=== PATIENT | male | born 1990 | race Caucasian/White ===

== ENCOUNTER 2018-08-18 09:35 | Observation (INO) | payer OTHER ==
[2018-08-18] MEDS ORDERED: SODIUM CHLORIDE 0.9% 1,000 ML IV STA (10:20)
[2018-08-18] MEDS ORDERED: ONDANSETRON 4 MG/2 ML VIAL IVP STA (10:20)
[2018-08-18] MEDS ORDERED: MORPHINE SULFATE 4 MG/ML SYRINGE IV STA (10:20)
[2018-08-18] MEDS ORDERED: SODIUM CHLORIDE 0.9% 500 ML 500 ML IV STA (10:20)
--- NOTE | 2018-08-18 10:21 | ED ---
Abdominal Pain HPI - General Chief Complaint: Abdominal Pain Stated Complaint: appendix Time Seen by Provider: 08/18/18 09:57 Source: patient, RN notes reviewed, old records reviewed Mode of arrival: ambulatory Limitations: no limitations - History of Present Illness Initial Comments: This is a 28-year-old male the ER for evaluation. Patient resents today for evaluation regarding abdominal pain, severe right lower quadrant abdominal pain. Mild nausea no vomiting. Patient's only medical history is underlying hypertension. Denies fever, denies constipation or diarrhea. MD Complaint: abdominal pain (Right lower quadrant) -: hour(s) Location: RLQ Radiation: none Migration to: RLQ Severity scale (1-10): 6 Quality: aching Consistency: constant Improves With: nothing Worsens With: nothing Associated Symptoms: nausea - Related Data Home Medications Medication Instructions Recorded Confirmed amLODIPine [Norvasc] 10 mg PO HS 08/18/18 08/18/18 Allergies Allergy/AdvReac Type Severity Reaction Status Date / Time No Known Allergies Allergy Verified 08/18/18 10:26 Review of Systems ROS Statement: Those systems with pertinent positive or pertinent negative responses have been documented in the HPI. ROS Other: All systems not noted in ROS Statement are negative. Past Medical History Past Medical History: Hypertension History of Any Multi-Drug Resistant Organisms: None Reported Past Surgical History: Tonsillectomy Past Psychological History: No Psychological Hx Reported Smoking Status: Never smoker Past Alcohol Use History: None Reported Past Drug Use History: None Reported General Exam Limitations: no limitations General appearance: alert, in no apparent distress Head exam: Present: atraumatic, normocephalic, normal inspection Eye exam: Present: normal appearance, PERRL, EOMI. Absent: scleral icterus, conjunctival injection, periorbital swelling ENT exam: Present: normal exam, mucous membranes moist Neck exam: Present: normal inspection. Absent: tenderness, meningismus, lymphadenopathy Respiratory exam: Present: normal lung sounds bilaterally. Absent: respiratory distress, wheezes, rales, rhonchi, stridor Cardiovascular Exam: Present: regular rate, normal rhythm, normal heart sounds. Absent: systolic murmur, diastolic murmur, rubs, gallop, clicks GI/Abdominal exam: Present: soft, normal bowel sounds, other (Right lower quadrant abdominal tenderness, positive McBurney's). Absent: distended, tenderness, guarding, rebound, rigid Extremities exam: Present: normal inspection, full ROM, normal capillary refill. Absent: tenderness, pedal edema, joint swelling, calf tenderness Back exam: Present: normal inspection Neurological exam: Present: alert, oriented X3, CN II-XII intact Psychiatric exam: Present: normal affect, normal mood Skin exam: Present: warm, dry, intact, normal color. Absent: rash Course Vital Signs 08/18/18 08/18/18 08/18/18 09:52 11:26 11:44 Temperature 98.2 F 97.9 F Pulse Rate 77 75 Respiratory 16 16 Rate Blood Pressure 163/99 170/126 O2 Sat by Pulse 98 98 Oximetry - Reevaluation(s) Reevaluation #1: 08/18/18 12:03 Patient's pain is controlled Medical Decision Making - Medical Decision Making 28 male the ER for evaluation patient presents today for evaluation regarding abdominal pain positive acute appendicitis, will admit for surgical evaluation - Lab Data Result diagrams: 08/18/18 10:18 08/18/18 10:18 Lab Results 08/18/18 08/18/18 Range/Units 10:18 10:18 WBC 12.7 H (3.8-10.6) k/uL RBC 5.99 H (4.30-5.90) m/uL Hgb 17.5 (13.0-17.5) gm/dL Hct 48.7 (39.0-53.0) % MCV 81.4 (80.0-100.0) fL MCH 29.3 (25.0-35.0) pg MCHC 36.0 (31.0-37.0) g/dL RDW 13.2 (11.5-15.5) % Plt Count 216 (150-450) k/uL Neutrophils % 79 % Lymphocytes % 12 % Monocytes % 6 % Eosinophils % 3 % Basophils % 0 % Neutrophils # 10.0 H (1.3-7.7) k/uL Lymphocytes # 1.5 (1.0-4.8) k/uL Monocytes # 0.7 (0-1.0) k/uL Eosinophils # 0.4 (0-0.7) k/uL Basophils # 0.0 (0-0.2) k/uL Hyperchromasia Slight Sodium 142 (137-145) mmol/L Potassium 3.6 (3.5-5.1) mmol/L Chloride 102 (98-107) mmol/L Carbon Dioxide 29 (22-30) mmol/L Anion Gap 11 mmol/L BUN 10 (9-20) mg/dL Creatinine 0.94 (0.66-1.25) mg/dL Est GFR (CKD-EPI)AfAm >90 (>60 ml/min/1.73 sqM) Est GFR (CKD-EPI)NonAf >90 (>60 ml/min/1.73 sqM) Glucose 96 (74-99) mg/dL Calcium 10.1 (8.4-10.2) mg/dL Total Bilirubin 1.0 (0.2-1.3) mg/dL AST 34 (17-59) U/L ALT 66 (21-72) U/L Alkaline Phosphatase 83 (38-126) U/L Total Protein 8.4 H (6.3-8.2) g/dL Albumin 5.1 H (3.5-5.0) g/dL Amylase 48 (30-110) U/L Lipase 90 (23-300) U/L - Radiology Data Radiology results: report reviewed (CT abdomen pelvis positive for appendicitis) , image reviewed Disposition Clinical Impression: Abdominal pain, Acute appendicitis Disposition: ADMITTED IP TO THIS [facility] Condition: Good Is patient prescribed a controlled substance at d/c from ED?: No Referrals: Vilma Beltre MD [Primary Care Provider] - 1-2 days
[2018-08-18 10:47] LABS: Basophils % (A) 0 %; Eosinophils # (A) 0.4 k/uL (0-0.7); Eosinophils % (A) 3 %; HCT 48.7 % (39.0-53.0); HGB 17.5 gm/dL (13.0-17.5); Hyperchromasia Slight; Lymphocytes # (A) 1.5 k/uL (1.0-4.8); Lymphocytes % (A) 12 %; MCH 29.3 pg (25.0-35.0); MCV 81.4 fL (80.0-100.0); Mean Platelet Volume 6.8; Monocytes # (A) 0.7 k/uL (0-1.0); Monocytes % (A) 6 %; Neutrophils % (A) 79 %; Platelet Count 216 k/uL (150-450); RBC 5.99 m/uL (4.30-5.90); RDW 13.2 % (11.5-15.5); WBC 12.7 k/uL (3.8-10.6)
[2018-08-18 10:59] LABS: ALT 66 U/L (21-72); AST 34 U/L (17-59); Albumin 5.1 g/dL (3.5-5.0); Alkaline Phosphatase 83 U/L (38-126); Amylase 48 U/L (30-110); Anion Gap 11 mmol/L; Blood Urea Nitrogen 10 mg/dL (9-20); Calcium 10.1 mg/dL (8.4-10.2); Carbon Dioxide 29 mmol/L (22-30); Chloride 102 mmol/L (98-107); Glucose 96 mg/dL (74-99); Lipase 90 U/L (23-300); Potassium 3.6 mmol/L (3.5-5.1); Sodium 142 mmol/L (137-145); Total Protein 8.4 g/dL (6.3-8.2)
--- NOTE | 2018-08-18 11:05 | CT ---
EXAMINATION TYPE: CT abdomen pelvis w con DATE OF EXAM: 08/18/2018 COMPARISON: None HISTORY: RLQ pain, nausea, diarrhea CT DLP: 747.3 mGycm Automated exposure control for dose reduction was used. TECHNIQUE: Helical acquisition of images was performed from the lung bases through the pelvis. CONTRAST: Performed without Oral Contrast and with IV Contrast, patient injected with 100 mL of Isovue 300. FINDINGS: LUNG BASES: No significant abnormality is appreciated. LIVER/GB: Unremarkable morphology and enhancement other than a focal area of probable focal fatty inf iltration seen on image 25 of axial series 201. No cholelithiasis is seen. No right upper quadrant fa t stranding. PANCREAS: No significant abnormality is seen. SPLEEN: No significant abnormality is seen. ADRENALS: No nodule or thickening. KIDNEYS: Numerous hypoattenuated renal lesions are too small to accurately characterize however favor ed to represent renal cysts. FREE AIR: No free air is visualized. ADENOPATHY: No greater than 1 cm short axis lymph nodes are noted within the abdomen or pelvis. Scat tered nonenlarged right lower quadrant mesenteric lymph nodes are seen REPRODUCTIVE ORGANS: No significant abnormality is seen URINARY BLADDER: Urinary bladder wall is circumferentially thickened, likely related to incomplete d istention although cystitis is a possibility. OSSEOUS STRUCTURES: Osseous structures appear intact. There is straightening of the usual lumbar jeferson dosis that may relate to muscular sprain or patient positioning. BOWEL: Although the proximal appendix is air-filled the distal portion of the appendix demonstrates wall hyperemia and very subtle pericolonic fat stranding such as on series 202 (coronal) image 34. Th is is seen from image 29 through 34. Findings are suspicious for early developing acute appendicitis. Appendix is upper limits of normal size measuring 6 mm. Moderate amount retained colonic stool is seen. No dilated large or small bowel is noted. OTHER: There is a very small subcentimeter fat filled periumbilical hernia. IMPRESSION: FINDINGS HIGHLY SUSPICIOUS FOR EARLY DEVELOPING ACUTE UNCOMPLICATED APPENDICITIS WITH MILD SURROUNDIN G PERIAPPENDICEAL FAT STRANDING. NO PNEUMOPERITONEUM OR PERIAPPENDICEAL ABSCESS. FINDINGS WERE DISCUS SED WITH THE ORDERING PHYSICIAN BY DR. BRYSON AT 11:02 AM ON 08/18/2018.
[2018-08-18] MEDS ORDERED: MORPHINE SULFATE 4 MG/ML SYRINGE IVP STA (11:46)
[2018-08-18] MEDS ORDERED: SODIUM CHLORIDE 0.9% 1,000 ML IV ONE (12:02)
[2018-08-18] MEDS ORDERED: LACTATED RINGERS 1,000 ML IV ONE (17:17)
[2018-08-18] MEDS ORDERED: DEXAMETHASONE SOD PHOS (MDV) 100 MG/10 ML VIAL IV ONE (17:27)
[2018-08-18] MEDS: ONDANSETRON 4 MG/2 ML VIAL IVP PRN ×2 (17:28→20:14)
[2018-08-18] MEDS ORDERED: ceFAZolin IN SWFI 2 GM/20 ML SYRINGE IVP STA (17:38)
[2018-08-18] MEDS ORDERED: ACETAMINOPHEN IV (For NPO) 1,000 MG in EMPTY BAG 1 BAG IVPB ONE (17:38)
[2018-08-18] MEDS ORDERED: ceFAZolin IN SWFI 2 GM/20 ML SYRINGE IVP ONE (17:38)
--- NOTE | 2018-08-18 17:38 | P.GSHP ---
History of Present Illness H&P Date: 08/18/18 CHIEF COMPLAINT: Right lower quadrant abdominal pain with appendicitis for less than 1 day. HISTORY OF PRESENT ILLNESS: The patient is a previously healthy 28-year-old male who presents with less than 1 day history of periumbilical with right lower quadrant abdominal pain. He presented with CT abdomen and pelvis consistent with dilated appendix suspicious for appendicitis hence general surgery admission. PAST MEDICAL HISTORY: See list. PAST SURGICAL HISTORY: See list. CURRENT MEDICATIONS: See list. ALLERGIES: See list. SOCIAL HISTORY: No illicit drug use. FAMILY HISTORY: Non-contributory. REVIEW OF ORGAN SYSTEMS: CONSTITUTIONAL: No active fever or chills. HEENT: No trouble with vision, hearing or nosebleeds. LYMPHATIC: No lumps and bumps around the neck. ENDOCRINE: No thyroid disorders. Denies any blood sugar glucose intolerance. RESPIRATORY: No shortness of breath including chronic cough. CARDIOVASCULAR: No history of chest pain with exertion. GASTROINTESTINAL: no regurgitation of bile at night as well as intermittent nausea. No blood in stools. GENITOURINARY: No blood in urine or increased urinary frequency. MUSCULOSKELETAL: No current joint arthritis. NEUROLOGIC: No numbness or tingling along the distal extremities. No seizure disorders or headaches. PSYCHIATRIC: No depression or suicidal ideation. HEMATOLOGIC: No abnormal bleeding or bruising. PHYSICAL EXAMINATION: GENERAL: Well developed and in no acute distress. Pleasant. HEENT: No sclera icterus. Extraocular movements grossly intact. Moist buccal mucosa. Head is atraumatic, normocephalic. Hears conversational speech. No nasal drainage. NECK: Supple without lymphadenopathy. No JV distention. CHEST: Non-labored respirations and equal bilateral excursions. CARDIOVASCULAR: Regular rate and rhythm per rhythm strips. ABDOMEN: No skin changes along the abdomen. No peritonitis. MUSCULOSKELETAL: No clubbing, cyanosis or edema. NEUROLOGIC: No focal or lateralizing signs. PSYCH: Appropriate affect. Alert and oriented to person, place and time. SKIN: Well perfused. Good skin turgor. LABS: Reviewed STUDIES: CT of the abdomen and pelvis reviewed with findings consistent with appendicitis. ASSESSMENT: 1. Right lower quadrant pain. 2. Appendicitis. 3. Leukocytosis. PLAN: 1. I have discussed benefits and risks of laparoscopic appendectomy. 2. Bilateral SCDs. 3. Antibiotics. 4. DVT prophylaxis with heparin. 5. GI prophylaxis. Thank you very much for allowing me to participate in the care of your patient. Past Medical History Past Medical History: Hypertension History of Any Multi-Drug Resistant Organisms: None Reported Past Surgical History: Tonsillectomy Additional Past Surgical History / Comment(s): Deviated septum Past Anesthesia/Blood Transfusion Reactions: Postoperative Nausea & Vomiting ( PONV) Additional Past Anesthesia/Blood Transfusion Reaction / Comment(s): Slow to wake. PONV after tonsillectomy. Smoking Status: Never smoker - Past Family History Mother Family Medical History: No Reported History Additional Family Medical History / Comment(s): Mother is healthy Father History Unknown: Yes Medications and Allergies Home Medications Medication Instructions Recorded Confirmed Type amLODIPine [Norvasc] 10 mg PO HS 08/18/18 08/18/18 History Allergies Allergy/AdvReac Type Severity Reaction Status Date / Time No Known Allergies Allergy Verified 08/18/18 17:04 Surgical - Exam Vital Signs Temp Pulse Resp BP Pulse Ox 98.2 F 77 16 163/99 98 08/18/18 09:52 08/18/18 09:52 08/18/18 09:52 08/18/18 09:52 08/18/18 09:52 Results - Labs 08/18/18 10:18 08/18/18 10:18 Abnormal Lab Results - Last 24 Hours (Table) 08/18/18 08/18/18 Range/Units 10:18 10:18 WBC 12.7 H (3.8-10.6) k/uL RBC 5.99 H (4.30-5.90) m/uL Neutrophils # 10.0 H (1.3-7.7) k/uL Total Protein 8.4 H (6.3-8.2) g/dL Albumin 5.1 H (3.5-5.0) g/dL Diabetes panel 08/18/18 Range/Units 10:18 Sodium 142 (137-145) mmol/L Potassium 3.6 (3.5-5.1) mmol/L Chloride 102 (98-107) mmol/L Carbon Dioxide 29 (22-30) mmol/L BUN 10 (9-20) mg/dL Creatinine 0.94 (0.66-1.25) mg/dL Glucose 96 (74-99) mg/dL Calcium 10.1 (8.4-10.2) mg/dL AST 34 (17-59) U/L ALT 66 (21-72) U/L Alkaline Phosphatase 83 (38-126) U/L Total Protein 8.4 H (6.3-8.2) g/dL Albumin 5.1 H (3.5-5.0) g/dL Calcium panel 08/18/18 Range/Units 10:18 Calcium 10.1 (8.4-10.2) mg/dL Albumin 5.1 H (3.5-5.0) g/dL Pituitary panel 08/18/18 Range/Units 10:18 Sodium 142 (137-145) mmol/L Potassium 3.6 (3.5-5.1) mmol/L Chloride 102 (98-107) mmol/L Carbon Dioxide 29 (22-30) mmol/L BUN 10 (9-20) mg/dL Creatinine 0.94 (0.66-1.25) mg/dL Glucose 96 (74-99) mg/dL Calcium 10.1 (8.4-10.2) mg/dL Adrenal panel 08/18/18 Range/Units 10:18 Sodium 142 (137-145) mmol/L Potassium 3.6 (3.5-5.1) mmol/L Chloride 102 (98-107) mmol/L Carbon Dioxide 29 (22-30) mmol/L BUN 10 (9-20) mg/dL Creatinine 0.94 (0.66-1.25) mg/dL Glucose 96 (74-99) mg/dL Calcium 10.1 (8.4-10.2) mg/dL Total Bilirubin 1.0 (0.2-1.3) mg/dL AST 34 (17-59) U/L ALT 66 (21-72) U/L Alkaline Phosphatase 83 (38-126) U/L Total Protein 8.4 H (6.3-8.2) g/dL Albumin 5.1 H (3.5-5.0) g/dL
[2018-08-18] MEDS ORDERED: HEPARIN SODIUM,PORCINE 5,000 UNIT/ML 1 ML VIAL SQ STA (17:39)
[2018-08-18] MEDS ORDERED: SODIUM CHLORIDE 0.9% 50 ML with ceFAZolin 2,000 MG IV ONE ×2 (18:00)
[2018-08-18] MEDS ORDERED: BUPIVACAIN-EPI 0.25%-1:200,000 30 ML VIAL SQ ONE (18:10)
--- NOTE | 2018-08-18 18:40 | P.OP ---
Date of Procedure: 08/18/18 Description of Procedure: SURGEON: ROLO RICE MD DRAFTER HEATING AND VENTILATING: None. PREOPERATIVE DIAGNOSES: 1. Right lower quadrant abdominal pain. 2. Acute appendicitis. 3. Leukocytosis. POSTOPERATIVE DIAGNOSES: 1. Right lower quadrant abdominal pain. 2. Acute appendicitis. 3. Leukocytosis. 4. Acute appendicitis with periappendicitis, without rupture. PROCEDURES PERFORMED: 1. Diagnostic laparoscopy. 2. Laparoscopic appendectomy. ANESTHESIA: General with local ESTIMATED BLOOD LOSS: 5 mL. SPECIMENS REMOVED: Appendix. COMPLICATIONS: None. OPERATIVE FINDINGS: 1. Acute appendicitis with dilated appendix and periappendicitis without rupture. 2. Unremarkable small bowel and terminal ileum. INDICATIONS: The patient is a 28-year-old male who presents with over 24-hour history of right lower quadrant abdominal pain. He had studies consistent with with acute appendicitis. Benefits and risks, including possibility of open technique were described at length. Informed consent was obtained. DESCRIPTION OR PROCEDURE: Patient was brought to the operating room, laid in supine position. After general induction, the abdomen was prepped and draped in standard sterile fashion. Prior to incision, a timeout protocol was confirmed with surgical team regarding patient's name including procedure to be performed. Preoperative medications were given intraoperatively. Additionally, bilateral SCDs were placed. A left upper quadrant incision was made after localizing the skin with anesthetic. A 0 degree 5 mm laparoscopic trocar entry was performed and entered into the peritoneal cavity. The abdomen was insufflated to 15 mmHg of pressure, which he tolerated well. Diagnostic laparoscopy demonstrated no injury to bowel, viscera or mesentery. The liver was enlarged with features of fatty liver disease. A 5 mm port was placed just above the pubis. A separate 12 mm port was placed at the left lateral abdominal wall under direct visualization. The patient was placed in Trendelenburg position with the right side up. A systematic view within the abdominal cavity was started with the small bowel which was unremarkable. The base of the cecum was without inflammation. The entire appendix was dilated consistent with acute appendicitis including periappendicitis. A 45 mm Endo BART echelon stapler was fired using a gutierrez vascular load. A staple load was used for complete division of the base of the appendix. The staple line was completely hemostatic. The specimen was removed from the abdominal cavity with a Endo Catch bag through the 12 mm trocar. All instruments and pneumoperitoneum were evacuated from the abdominal cavity. A total of 30 mL of local anesthetic was infiltrated in all wounds for postop analgesia. Liquid glue was applied to the skin after reapproximating the incisions with 4-0 Monocryl as described. At the end of the procedure, needle, sponge, and instrument count was verified correct by surgical dental assistant. The patient had tolerated the procedure well, was taken to the postanesthesia care unit in stable condition. Intraoperative abdominal films were reviewed with the patient's family who were pleased with the level of care.
[2018-08-18] MEDS: MORPHINE SULFATE 4 MG/ML SYRINGE IVP PRN (20:05)
[2018-08-18] MEDS: HYDROcodone/APAP 5-325MG 1 EACH TAB PO PRN (22:39)
[2018-08-19] MEDS: MORPHINE SULFATE 4 MG/ML SYRINGE IVP PRN ×2 (00:04→13:20)
[2018-08-19] MEDS: AMPICILLIN-SULBACTAM 3 GM in SODIUM CHLORIDE 0.9% 100 ML IVPB SCH ×3 (00:05→12:04)
[2018-08-19] MEDS ORDERED: ACETAMINOPHEN IV (For NPO) 1,000 MG in EMPTY BAG 1 BAG IVPB ONE (01:00)
[2018-08-19 03:36] VITALS: TEMP 97.9
[2018-08-19] MEDS: HYDROcodone/APAP 5-325MG 1 EACH TAB PO PRN ×2 (07:01→12:35)
[2018-08-19 07:47] LABS: Basophils % (A) 0 %; Eosinophils # (A) 0.1 k/uL (0-0.7); Eosinophils % (A) 1 %; HGB 15.6 gm/dL (13.0-17.5); Lymphocytes # (A) 0.6 k/uL (1.0-4.8); Lymphocytes % (A) 5 %; MCH 29.2 pg (25.0-35.0); MCHC 35.4 g/dL (31.0-37.0); MCV 82.6 fL (80.0-100.0); Mean Platelet Volume 6.5; Monocytes # (A) 0.3 k/uL (0-1.0); Monocytes % (A) 2 %; Neutrophils # (A) 11.1 k/uL (1.3-7.7); Neutrophils % (A) 92 %; Platelet Count 231 k/uL (150-450); RBC 5.33 m/uL (4.30-5.90); WBC 12.1 k/uL (3.8-10.6)
[2018-08-19 08:28] VITALS: RESP 18
[2018-08-19 16:00] VITALS: BP 158/103; PULSE 78
--- NOTE | 2018-08-19 16:24 | P.DS ---
Providers Date of admission: 08/18/18 11:57 Expected date of discharge: 08/19/18 Attending physician: Kristan Shipley Primary care physician: Vilma Beltre Hospital Course: Patient did well following appendectomy. Pain improved. Patient stable for discharge. Follow-up in 2 weeks Patient Condition at Discharge: Good Plan - Discharge Summary Discharge Rx Participant: No New Discharge Prescriptions: New Docusate [Colace] 100 mg PO BID #20 capsule HYDROcodone/APAP 7.5-325MG [[place] 7.5-325] 1 tab PO Q4H PRN 3 Days #18 tab PRN Reason: Pain No Action amLODIPine [Norvasc] 10 mg PO HS Discharge Medication List amLODIPine [Norvasc] 10 mg PO HS 08/18/18 [History] Docusate [Colace] 100 mg PO BID #20 capsule 08/19/18 [Rx] HYDROcodone/APAP 7.5-325MG [[place] 7.5-325] 1 tab PO Q4H PRN 3 Days #18 tab 08/19 [Rx] Follow up Appointment(s)/Referral(s): Vilma Beltre MD [Primary Care Provider] - 1-2 days Kristan Shipley MD [STAFF PHYSICIAN] - 09/01/18 12:15 pm Patient Instructions/Handouts: Laparoscopic Appendectomy (DC) Discharge Disposition: HOME SELF-CARE
== END 2018-08-19 16:31 | disposition home or self-care (01) ==
LOC: EC 09:35 → 1SOBS 11:57
PROVIDERS: ADMIT Surgery Plastic and Reconstructive Surgery; ATTEND Surgery Plastic and Reconstructive Surgery
DX: K35.80 Unspecified acute appendicitis (principal); I10 Essential (primary) hypertension; R10.31 Right lower quadrant pain; Z79.899 Other long term (current) drug therapy
CPT/HCPCS: 44970; 96376; 96361; 96374; 96375; 99285; 36415; 88304; 80053; 82150; 83690; 85025 ×2; 74177; G0378 ×2; J2270 ×2; J2405; J0690; J0295; J1100; Q9967

== ENCOUNTER 2019-02-11 22:14 | Emergency (ER) | payer OTHER ==
[2019-02-11] MEDS ORDERED: ONDANSETRON ODT 4 MG TAB PO STA (22:44)
[2019-02-11] MEDS ORDERED: ONDANSETRON 4 MG ODT STARTER PACK 2 TAB BTL PO STA (22:44)
--- NOTE | 2019-02-11 22:45 | ED ---
Nausea/Vomiting/Diarrhea HPI - General Chief complaint: Nausea/Vomiting/Diarrhea Stated complaint: NVD Time Seen by Provider: 02/11/19 22:44 Source: patient, RN notes reviewed, old records reviewed Mode of arrival: ambulatory Limitations: no limitations - History of Present Illness Initial comments: This is a [id number] male the ER for evaluation of nausea vomiting. Patient has nausea vomiting that started today worse with eating. He is able to drink just prior to arrival. No travel history no sick contacts he did have appendicectomy months ago. Patient did have bowel movement this morning. No fevers. No travel history or sick contacts no known family members with similar complaint MD complaint: nausea, vomiting -: hour(s) Description of Vomiting: food contents, watery Associated Abdominal Pain: No Radiation: none Consistency: constant, now resolved Improves with: none Worsens with: eating Associated Symptoms: loss of appetite, nausea/vomiting - Related Data Home Medications Medication Instructions Recorded Confirmed amLODIPine [Norvasc] 10 mg PO HS 08/18/18 02/11/19 Hydrochlorothiazide [Hydrodiuril] 12.5 mg PO HS 02/11/19 02/11/19 Allergies Allergy/AdvReac Type Severity Reaction Status Date / Time No Known Allergies Allergy Verified 02/11/19 23:14 Review of Systems ROS Statement: Those systems with pertinent positive or pertinent negative responses have been documented in the HPI. ROS Other: All systems not noted in ROS Statement are negative. Past Medical History Past Medical History: Hypertension History of Any Multi-Drug Resistant Organisms: None Reported Past Surgical History: Appendectomy, Tonsillectomy Additional Past Surgical History / Comment(s): Deviated septum Past Anesthesia/Blood Transfusion Reactions: Postoperative Nausea & Vomiting (PONV) Additional Past Anesthesia/Blood Transfusion Reaction / Comment(s): Slow to wake. PONV after tonsillectomy. Past Psychological History: Depression Smoking Status: Never smoker Past Alcohol Use History: None Reported Past Drug Use History: None Reported - Past Family History Mother Family Medical History: No Reported History Additional Family Medical History / Comment(s): Mother is healthy Father History Unknown: Yes General Exam Limitations: no limitations General appearance: alert, in no apparent distress Head exam: Present: atraumatic, normocephalic, normal inspection Eye exam: Present: normal appearance, PERRL, EOMI. Absent: scleral icterus, conjunctival injection, periorbital swelling ENT exam: Present: normal exam, mucous membranes moist Neck exam: Present: normal inspection. Absent: tenderness, meningismus, lymphadenopathy Respiratory exam: Present: normal lung sounds bilaterally. Absent: respiratory distress, wheezes, rales, rhonchi, stridor Cardiovascular Exam: Present: regular rate, normal rhythm, normal heart sounds. Absent: systolic murmur, diastolic murmur, rubs, gallop, clicks GI/Abdominal exam: Present: soft, normal bowel sounds. Absent: distended, tenderness, guarding, rebound, rigid Extremities exam: Present: normal inspection, full ROM, normal capillary refill. Absent: tenderness, pedal edema, joint swelling, calf tenderness Back exam: Present: normal inspection Neurological exam: Present: alert, oriented X3, CN II-XII intact Psychiatric exam: Present: normal affect, normal mood Skin exam: Present: warm, dry, intact, normal color. Absent: rash Course Vital Signs 02/11/19 02/12/19 22:35 00:23 Temperature 97.9 F 98.4 F Pulse Rate 62 76 Respiratory 20 17 Rate Blood Pressure 117/72 124/89 O2 Sat by Pulse 100 100 Oximetry Medical Decision Making - Medical Decision Making 28 male the ER for evaluation of nausea vomiting 6 months ago had appendicectomy, patient's able to tolerate oral intake now, is having bowel movement. X-ray abdomen chest is negative for acute disease patient given Zofran discharged home - Radiology Data Radiology results: report reviewed (X-ray abdominal series and chest is negative for acute disease), image reviewed Disposition Clinical Impression: Gastroenteritis, Nausea & vomiting Disposition: HOME SELF-CARE Condition: Good Instructions (If sedation given, give patient instructions): Acute Nausea and Vomiting (ED), Acute Diarrhea (ED) Is patient prescribed a controlled substance at d/c from ED?: No Referrals: Vilma Beltre MD [Primary Care Provider] - 1-2 days
--- NOTE | 2019-02-12 00:04 | XR ---
EXAM: XR Abdomen 2 Views With XR Chest CLINICAL HISTORY: ITS.REASON XR Reason: Pain TECHNIQUE: Frontal view of the chest, frontal view of the abdomen/pelvis and upright or decubitus view of the abdomen. COMPARISON: None FINDINGS: Hardware: None. Lungs/pleura: Normal. No focal consolidation. No pleural effusion or pneumothorax. Heart/mediastinum: Normal. No cardiomegaly. Soft tissues: Bilateral nipple piercings. Bones: No acute fracture. Abdomen: Nonobstructive bowel gas pattern. Paucity of bowel gas. No free air. IMPRESSION: 1. No acute cardiopulmonary abnormality identified. 2. Nonobstructive bowel gas pattern. Paucity of bowel gas.
[2019-02-12 00:24] VITALS: BP 124/89; PULSE 76; RESP 17; TEMP 98.4
== END 2019-02-12 00:27 | disposition home or self-care (01) ==
LOC: EC 22:14
DX: K52.9 Noninfective gastroenteritis and colitis, unspecified (principal); I10 Essential (primary) hypertension; Z79.899 Other long term (current) drug therapy; Z90.49 Acquired absence of other specified parts of digestive tract
CPT/HCPCS: 74022; 99284; S0119